=== PATIENT | female | born 1970 | race Caucasian/White ===

== ENCOUNTER → 2016-12-12 | Outpatient (CLI) | payer BC ==
[~2016-12-12] MED LIST: DIOVAN80 MG PO; Hydrodiuril,Oretic,E PO; LEXAPRO10 MG PO; Vicodin,Lortab 5/500 PO; Zestril,Prinivil PO; Zocor PO
== END | disposition home or self-care (01) ==
LOC: CDC 13:54
DX: R94.31 Abnormal electrocardiogram [ECG] [EKG] (principal)
CPT/HCPCS: 93000